=== PATIENT | male | born 1970 | race Caucasian/White ===

== ENCOUNTER 2024-06-18 15:32 | Emergency (ER) | payer SELFPAY ==
[~2024-06-18] VITALS: Ht 170.2 cm; Wt 92.7 kg
[2024-06-18] MEDS ORDERED: Pantoprazole 40 MG in NS 10 ML IV ONE (17:15)
[2024-06-18] MEDS ORDERED: Folic Acid 1 MG,Thiamine 200 MG in NS 1,000 ML IV ONE (17:15)
[2024-06-18] MEDS ORDERED: Ondansetron 4 MG/2 ML VIAL IV ONE (17:15)
[2024-06-18] MEDS ORDERED: NS 1,000 ML IV ONE (17:15)
[2024-06-18 18:02] LABS: BASO # 0.1 K/mm3 (0.0-0.2); BASO % 0.9 % (0.0-2.0); EOS # 0.1 K/mm3 (0.0-0.7); EOS % 0.6 % (0.0-4.0); GRAN % 61.9 % (42.2-75.2); HEMATOCRIT 46.9 % (42.0-52.0); HEMOGLOBIN 15.8 g/dl (13.5-18.0); LYMPH # 2.1 K/mm3 (1.2-3.4); LYMPH % 26.5 % (20.0-51.0); MEAN CELL VOLUME 95 fl (80.0-100.0); MEAN CORPUSCULAR HEMOGLOBIN 32 pg (27-31); MEAN CORPUSCULAR HGB CONC 34 g/dl (33.0-37.0); MEAN PLATELET VOLUME 9.2 fl (7.4-10.4); MONO # 0.8 K/mm3 (0.1-0.6); MONO % 9.6 % (1.7-9.3); PLATELET COUNT 264 K/mm3 (130-400); RED BLOOD COUNT 4.93 M/mm3 (4.20-5.60); REDCELL DISTRIBUTION WIDTH-CV 12.3 % (11.5-14.5)
[2024-06-18 18:20] LABS: ALANINE AMINOTRANSFERASE 23 U/L (0-55); ALBUMIN 4.3 g/dL (3.5-5.0); ALKALINE PHOSPHATASE 77 U/L (40-150); ANION GAP 13 mmol/L (7-16); AST,SGOT 34 U/L (5-34); BILIRUBIN,TOTAL 0.4 mg/dL (0.2-1.2); BLOOD UREA NITROGEN 13 mg/dL (8-26); CALCIUM 9.6 mg/dL (8.4-10.2); CHLORIDE 106 mEq/L (98-107); CREATININE, serum 0.93 mg/dL (0.72-1.25); GLUCOSE 100 mg/dL (70-99); LIPASE 36 U/L (8-78); POTASSIUM 4.2 mEq/L (3.5-4.5); SODIUM 138 mEq/L (136-145); TOTAL PROTEIN 7.3 g/dl (6.2-8.1)
[2024-06-18 18:23] LABS: ALCOHOL(ethanol),MEDICAL < 10 mg/dL (0-10)
[2024-06-18 18:27] LABS: TRICYCLIC ANTIDEPRESS URINE NEGATIVE (NEGATIVE)
[2024-06-18] MEDS ORDERED: LIBRIUM 25M25 MG/CAP PO (18:29)
[2024-06-18] MEDS ORDERED: Acetaminophen 500 MG TAB PO ONE (18:45)
[2024-06-18 18:57] VITALS: BP 147/99; PULSE 79; TEMP 97.8
[2024-06-18] MEDS ORDERED: chlordiazePOXIDE 25 MG CAP PO ONE (21:00)
== END 2024-06-18 19:15 | disposition home or self-care (01) ==
LOC: COL.ER 15:32
PROVIDERS: Physician Assistant
DX: F10.90 Alcohol use, unspecified, uncomplicated (principal); F43.10 Post-traumatic stress disorder, unspecified; F17.210 Nicotine dependence, cigarettes, uncomplicated; Y90.0 Blood alcohol level of less than 20 mg/100 ml
CPT/HCPCS: J2405; J2470; J3411; J7030

== ENCOUNTER 2024-06-21 14:30 | Emergency (ER) | payer SELFPAY ==
[~2024-06-21] VITALS: Ht 170.2 cm; Wt 92.3 kg
[~2024-06-21 14:30] MED LIST: LIBRIUM 25M25 MG/CAP PO
[2024-06-21 14:37] VITALS: TEMP 97.8
[2024-06-21] MEDS ORDERED: dexAMETHasone 10 MG/ML VIAL IV ONE (15:45)
[2024-06-21] MEDS ORDERED: diphenhydrAMINE 50 MG/ML 1 ML VIAL IV ONE (15:45)
[2024-06-21 16:21] LABS: BASO # 0.1 K/mm3 (0.0-0.2); EOS # 0.1 K/mm3 (0.0-0.7); EOS % 1.8 % (0.0-4.0); GRAN # 4.1 K/mm3 (1.4-6.5); GRAN % 56.9 % (42.2-75.2); HEMATOCRIT 42.3 % (42.0-52.0); HEMOGLOBIN 14.1 g/dl (13.5-18.0); LYMPH # 2.2 K/mm3 (1.2-3.4); LYMPH % 30.9 % (20.0-51.0); MEAN CELL VOLUME 97 fl (80.0-100.0); MEAN CORPUSCULAR HEMOGLOBIN 32 pg (27-31); MEAN CORPUSCULAR HGB CONC 33 g/dl (33.0-37.0); MEAN PLATELET VOLUME 9.4 fl (7.4-10.4); MONO # 0.6 K/mm3 (0.1-0.6); MONO % 8.7 % (1.7-9.3); PLATELET COUNT 213 K/mm3 (130-400); RED BLOOD COUNT 4.37 M/mm3 (4.20-5.60); REDCELL DISTRIBUTION WIDTH-CV 12.3 % (11.5-14.5)
[2024-06-21] MEDS ORDERED: Losartan 50 MG,hydroCHLOROthiazide 12.5 MG PO ONE (16:30)
[2024-06-21 16:40] LABS: ALBUMIN 3.6 g/dL (3.5-5.0); BILIRUBIN,TOTAL 0.1 mg/dL (0.2-1.2); CALCIUM 9.1 mg/dL (8.4-10.2); CREATININE, serum 0.81 mg/dL (0.72-1.25); POTASSIUM 4.1 mEq/L (3.5-4.5); TOTAL PROTEIN 6.3 g/dl (6.2-8.1)
[2024-06-21] MEDS ORDERED: HYZAAR 50-12.1 UDTAB PO (16:50)
[2024-06-21 17:12] VITALS: BP 124/81; PULSE 86
== END 2024-06-21 17:12 | disposition home or self-care (01) ==
LOC: COL.ER 14:30
PROVIDERS: Family Medicine
DX: G43.909 Migraine, unspecified, not intractable, without status migrainosus (principal); I10 Essential (primary) hypertension
CPT/HCPCS: J0780; J1100; J1200